=== PATIENT | female | born 1990 | race Two or more races ===

== ENCOUNTER 2024-11-09 14:21 | Emergency (ER) | payer MEDICAID, SELFPAY ==
[2024-11-09 14:22] VITALS: BMI 43.5
[2024-11-09 14:48] VITALS: BP 153/94; PULSE 108; RESP 18; TEMP 36.9; O2SAT 96
--- NOTE | 2024-11-09 14:59 | PD.EDRME ---
Rapid Medical Screening Exam E Arrival date/time: 11/09/24 14:21 34-year-old female presents to the Emergency Department today for complaints of generalized fatigue and fever ongoing since Tuesday Chief Complaint: Weakness Vital signs: Vital Signs Temperature 98.4 F 11/09/24 14:48 Pulse Rate 108 H 11/09/24 14:48 Respiratory Rate 18 11/09/24 14:48 Blood Pressure 153/94 H 11/09/24 14:48 Pulse Oximetry (%) 96 11/09/24 14:48 Oxygen Delivery Method Room Air 11/09/24 14:48
[2024-11-09 15:25] LABS: Collection Type, Urine Clean Catch
[2024-11-09 15:31] LABS: Bacteria,Urine 1+; Bilirubin,Urine Negative (Negative); Blood,Urine Negative (Negative); Color,Urine Lt-Yellow (Lt Yel-Yel); Glucose, Urine Negative (Negative); Ketones,Urine Negative (Negative); Leukocyte Esterase,Urine Positive (Negative); Nitrite,Urine Positive (Negative); Protein,Urine Negative (Neg - Trace); RBC,Urine 2 /hpf (0-3); Squamous Epithelial Cell,Urine 6 /hpf (0-5); Urobilinogen,Urine Negative mg/dL (0.0-1.0); WBC,Urine 41 /hpf (0-5)
[2024-11-09 15:33] LABS: HCG Qualitative,Urine Negative
[2024-11-09 15:34] LABS: Clarity,Urine Hazy (Clear/Hazy); Culture Indicated,Urine Yes
[2024-11-09 15:35] LABS: Basophils % (Auto) 0 % (0-2.5); Eosinophils # (Auto) 0.1 Thou/mm3 (0.0-0.5); Eosinophils % (Auto) 1 % (0-10); Hemoglobin 14.3 g/dL (12.0-16.0); Immature Granulocytes % (Auto) 0 % (0-0); Immature Granulocytes Auto 0.03 Thou/mm3 (0.00-0.00); Lymphocytes # (Auto) 1.5 Thou/mm3 (1.0-4.8); Lymphocytes % (Auto) 19 % (10-50); Mean Corpuscular HGB Conc 33.3 g/dl (31.0-37.0); Mean Corpuscular Hemoglobin 29.3 pg (25.0-35.0); Mean Corpuscular Volume 88 fL (80-100); Monocytes # (Auto) 0.4 Thou/mm3 (0.0-0.8); Monocytes % (Auto) 5 % (0-12); Neutrophils # (Auto) 5.9 Thou/mm3 (1.8-7.7); Neutrophils % (Auto) 75 % (37-80); Nucleated Red Blood Cell % 0 /100 WBC (0); Platelet Count 248 Thou/mm3 (140-440); RDW Standard Deviation 38.6 fL (36.4-46.3); Red Blood Count 4.88 Miln/mm3 (4.00-5.20); White Blood Count 7.9 Thou/mm3 (3.6-11.0)
[2024-11-09 15:52] LABS: Alanine Aminotransferase 33 U/L (10-49); Albumin, Serum 4.5 gm/dL (3.5-5.0); Albumin/Globulin Ratio 1.2 (1.2-2.2); Alkaline Phosphatase 93 U/L (46-116); Anion Gap 8 (7-16); Aspartate Amino Transferase 28 U/L (0-34); BUN/Creatinine Ratio 10 Ratio (12-20); Bilirubin,Total 0.4 mg/dL (0.3-1.2); Blood Urea Nitrogen 7 mg/dL (9-23); Calcium 9.1 mg/dL (8.3-10.6); Calcium (Corrected) 9.1 mg/dL (8.5-10.1); Carbon Dioxide 25.2 mMol/L (20.0-31.0); Chloride 104 mMol/L (98-107); Creatinine (Component) 0.7 mg/dL (0.6-1.3); Estimated Creatinine Clearance 152.6 mL/min (>60); Globulin 3.9 gm/dL (2.3-3.5); Glucose 167 mg/dL (74-106); Lipase 26 U/L (12-53); Osmolality,Calculated 275 (275-295); Potassium 3.8 mMol/L (3.4-5.1); Sodium 137 mMol/L (136-145); Total Protein 8.4 gm/dL (5.7-8.2); eGFR > 60 See Note
[2024-11-09 16:50] VITALS: BP 146/98; PULSE 111; RESP 18; TEMP 37; O2SAT 99
--- NOTE | 2024-11-09 17:20 | EDNOTE_ITS ---
<Statement entered by Lida Parr MD - 11/10/24 14:27> As co-signing physician, I was present and available for consult prn. I concur with the plan and care as documented by the midlevel provider. ED Weakness RME/HPI General Chief complaint: Weakness Stated complaint: WEAKNESS Time Seen by Provider: 11/09/24 17:08 Arrival date/time: 11/09/24 14:21 RME / HPI RME / HPI Narrative: 34-year-old female patient with no significant past medical history, came in for evaluation regarding generalized body weakness. Patient has been having generalized body weakness, associated with on and off low-grade fever, severity moderate also complained of low back pain. Patient denies any cough denies any sore throat denies any urinary frequency or dysuria. Denies any other complaints no vomiting also noted. Related Data Home Medications ?Medication ?Instructions ?Recorded ?Confirmed ferrous sulfate 325 mg (65 mg 325 mg PO DAILY 07/05/21 07/27/21 iron) tablet (Iron (ferrous sulfate)) prenat.vits,daysi,aoe-dhiu-fctde 1 tab PO QDAY 07/05/21 07/27/21 Previous Rx's ?Medication ?Instructions ?Recorded acetaminophen 650 mg 650 mg PO Q8H PRN fever or p ain 05/10/23 tablet,extended release (Tylenol 8 #30 tabs Hour) cyclobenzaprine 10 mg tablet 10 mg PO TID PRN muscle s pasm / 05/10/23 pain #15 tabs ibuprofen 600 mg tablet 600 mg PO Q8H PRN fever or p ain 05/10/23 #30 tabs prednisone 20 mg tablet See Rx Instructions .Route 1 .COMPLEX #9 tabs cyclobenzaprine 10 mg tablet 10 mg PO TID PRN pain #20 tabs 12/04/23 ibuprofen 600 mg tablet 600 mg PO Q6H PRN pain #30 t abs 12/04/23 lidocaine 5 % topical patch 1 patch topical QDAY #15 e a 12/04/23 methocarbamol 750 mg tablet 750 mg PO TID #20 tabs 11/08 cefuroxime axetil 500 mg tablet 500 mg PO BID #14 tabs 11/09/24 Allergies Allergy/AdvReac Type Severity Reaction Status Date / Time No Known Allergies Allergy Verified 11/09/24 14:25 Review of Systems Review of Systems Narrative Review of Systems: Review of system reviewed and within normal limits except mentioned in HPI ED Exam Narrative Physical exam: VITAL SIGNS: Reviewed. GENERAL APPEARANCE: Alert and interactive, follows commands, no acute distress, HEAD AND FACE: Non-traumatic. ENT: PERRL, pink conjunctivitis, eyelid no trauma, Mucous membrane moist. NECK: Supple, nontender, no nuchal rigidity. CHEST: No tenderness, no crepitus, no paradoxical movement, no retractions. LUNGS: Clear, well ventilated, symmetric, no rales, no wheezing, no ronchi, no stridor, good breath sounds bilaterally. HEART: Regular rate, regular rhythm, no murmur, no gallops. ABDOMEN: Soft, positive bowel sounds, nondistended, no guarding, nontender, no rebound, no masses, RECTAL: Deferred. GENITAL: Deferred. NEUROLOGICAL: Gross motor function intact sensory function intact, Appropriate for age. MUSCULOSKELETAL: low back tenderness, full range of motion. EXTREMITIES: Nontender, full range of motion. SKIN: Color pink, dry, no rash, no lacerations, no abrasions, no contusions. LYMPHATICS: Deferred. Course Quality Measures none Orders Category Date Time Status Bedside COVID-19 Antigen Test NOW Care 11/09/24 14:59 Active Bedside Influenza A&B Antigen Test NOW Care 11/09/24 14:59 Completed CBC Stat Lab 11/09/24 15:22 Completed Comprehensive Metabolic Panel Stat Lab 11/09/24 15:22 Completed HCG Qualitative,Urine Stat Lab 11/09/24 15:16 Completed Lipase Stat Lab 11/09/24 15:22 Completed UA, C/S IF [Urinalysis, C/S if Indicated] Stat Lab 11/09/24 15:16 Completed Urine Culture Stat Lab 11/09/24 15:16 Received Vital Signs Vital signs: Vital Signs Temperature 98.4 F 11/09/24 14:48 Pulse Rate 108 H 11/09/24 14:48 Respiratory Rate 18 11/09/24 14:48 Blood Pressure 153/94 H 11/09/24 14:48 Pulse Oximetry (%) 96 11/09/24 14:48 Oxygen Delivery Method Room Air 11/09/24 14:48 Weakness MDM Narrative MDM Narrative:: 34-year-old female patient with no significant past medical history, came in for evaluation regarding generalized body weakness. Patient has been having generalized body weakness, associated with on and off low-grade fever, severity moderate also complained of low back pain. Patient denies any cough denies any sore throat denies any urinary frequency or dysuria. Denies any other complaints no vomiting also noted. Patient's workup is significant for UTI otherwise unremarkable. Patient will be sent home on cefuroxime p.o. Patient is tolerating p.o. fluids in the emergency room. Patient data External records reviewed:: None Clinical information provided by:: patient Social determinants that could affect healthcare access:: none Patient has the following chronic illnesses:: None How is presenting disease/condition affected by chronic disease/condition?: no chronic disease Evaluation data The following diagnostics were reviewed and interpreted by me:: lab results Lab and/or radiology exams considered but not ordered:: None Interpretation Summary: See results MD Medications / Prescriptions Medications or Prescriptions considered but not ordered:: None Medication administrations:: None Consultations Consultation(s) initiated? (list below): No Diagnosis Weakness Differential Diagnosis: dehydration and other (UTI) Most likely diagnosis given after review of the tests above:: UTI Admission Indicated Admission indicated?: not indicated Admission Request Was there a request for admission?: No Disposition Plan Disposition Plan: Discharge Discharge Attestation Discharge Attestation: The patient was given an opportunity to ask questions and understood the discharge instructions. Discharge instructions specifically effects, indications for sooner follow up or return to the emergency department, and the expected course of current diagnosis. Patient condition: Stable Discharge Plan Plan Patient Disposition: HOME (Self Care) Disposition Comment: stable Prescriptions/Referrals Prescriptions/Med Rec: New cefuroxime axetil 500 mg tablet 500 mg PO BID Qty: 14 0RF No Action ferrous sulfate [Iron (ferrous sulfate)] 325 mg (65 mg iron) Tablet 325 mg PO DAILY prenat.vits,daysi,ybb-aqak-gekjk Tablet 1 tab PO QDAY cyclobenzaprine 10 mg tablet 10 mg PO TID PRN (Reason: pain) Qty: 20 0RF ibuprofen 600 mg tablet 600 mg PO Q6H PRN (Reason: pain) Qty: 30 0RF lidocaine 5 % adhesive patch,medicated 1 patch topical QDAY Qty: 15 0RF Rx Instructions: leave on most painful area for up to 12 hrs cyclobenzaprine 10 mg tablet 10 mg PO TID PRN (Reason: muscle spasm / pain) Qty: 15 0RF ibuprofen 600 mg tablet 600 mg PO Q8H PRN (Reason: fever or pain) Qty: 30 0RF prednisone 20 mg tablet See Rx Instructions .ROUTE .COMPLEX Qty: 9 0RF Rx Instructions: 2 tabs PO QAM x 3 days, then 1 tab PO QAM x 3 days acetaminophen [Tylenol 8 Hour] 650 mg tablet extended release 650 mg PO Q8H PRN (Reason: fever or pain) Qty: 30 0RF methocarbamol 750 mg tablet 750 mg PO TID Qty: 20 0RF Referrals: No Primary/Family,Physician [Primary Care Provider] - In 1 week Problem List Clinical Impression: Urinary tract infection Patient/Caregiver Discharge Instructions Discharge Activity: activity as tolerated Education Materials: Understanding Urinary Tract ... Additional Instructions: Thank you for the opportunity for serving you today. You are stable for discharged . You are advised to: Follow-up with your PCP in 1 to 2 days Return to ED for worsening of symptoms Increase oral fluids Take medication as prescribed Print Language: Guatem[place] Stand Alone Forms: Tracy Award Info., Patient Portal Info Letter PA/LINK FABRIC MACHINE OPERATOR Supervising Physician PA/LINK FABRIC MACHINE OPERATOR Supervising Physician: MD Keshav
== END 2024-11-09 17:25 | disposition home or self-care (01) ==
PROVIDERS: Nurse Practitioner Primary Care; Emergency Provider Emergency Medicine
DX: N39.0 Urinary tract infection, site not specified (principal)
CPT/HCPCS: 36415; 80053; 81001; 81025; 83690; 85025; 87077; 87086; 87186; 87400; 87811; 99283